=== PATIENT | male | born 1970 | race Caucasian/White ===

== ENCOUNTER 2019-01-04 15:16 | Inpatient (IN) | payer SELFPAY ==
[2019-01-04] VITALS (17 sets, daily range): BP systolic 98–123; BP diastolic 67–76; BMI 31.2
[~2019-01-04] VITALS: Ht 175.3 cm; Wt 92.5 kg
[2019-01-04 16:38] LABS: HEMATOCRIT 53.5 % (42.0-54.0); HEMOGLOBIN 15.8 g/dL (13.5-17.5); MCH 24.9 pg (26.0-34.0); MCHC 29.5 g/dL (31.0-37.0); MCV 84.4 fL (80.0-100.0); MEAN PLATELET VOLUME 10.2 fL (7.4-10.4); PLATELET COUNT 180 10x3/uL (130-400); RBC 6.34 10x6/uL (4.20-6.10); RDW 19.4 % (11.5-14.5); WBC 11.6 10x3/uL (4.8-10.8)
[2019-01-04 17:11] LABS: CREATINE KINASE 154 UL (21-232); PRO BNP 3835 pg/mL (0-125)
[2019-01-04 17:14] LABS: TROPONIN-I < 0.017 ng/mL (0.000-0.060)
[2019-01-04 17:58] LABS: EOSINOPHILS 1 % (0-7); LYMPHOCYTES 8 % (15-50); MONOCYTES 1 % (2-11); NEUTROPHILS 90 % (40-80); PLATELET ESTIMATE NORMAL
[2019-01-04 20:43] LABS: ALBUMIN 2.6 g/dL (3.4-5.0); ANION GAP 12.2 mmol/L (8-16); BILIRUBIN - TOTAL 0.53 mg/dL (0.2-1.3); CALCIUM 8.1 mg/dL (8.5-10.1); CARBON DIOXIDE 32.4 mmol/L (21.0-32.0); POTASSIUM - SERUM 5.6 mmol/L (3.5-5.1)
[2019-01-04 22:12] LABS: UDS - AMPHET NEGATIVE QUAL (NEGATIVE); UDS - BARB NEGATIVE QUAL (NEGATIVE); UDS - BENZO POSITIVE QUAL (NEGATIVE); UDS - COCAINE NEGATIVE QUAL (NEGATIVE); UDS - OPIATE NEGATIVE QUAL (NEGATIVE); UDS - PCP NEGATIVE QUAL (NEGATIVE); UDS - THC NEGATIVE QUAL (NEGATIVE)
[2019-01-04 23:03] LABS: CKMB 0.5 U/L (0.0-3.6); CREATINE KINASE 130 UL (21-232)
[2019-01-04 23:04] LABS: TROPONIN-I < 0.017 ng/mL (0.000-0.060)
[2019-01-05] VITALS (36 sets, daily range): BP systolic 94–149; BP diastolic 54–82; BMI 31.1
[2019-01-05 05:34] LABS: BASOPHILS 0.2 % (0-2); EOSINOPHILS 0 % (0-7); HEMATOCRIT 50.9 % (42.0-54.0); IMMATURE GRANULOCYTES 0.2 % (0-5); LYMPHOCYTES 11.6 % (15-50); MCH 24.6 pg (26.0-34.0); MCHC 29.5 g/dL (31.0-37.0); MCV 83.4 fL (80.0-100.0); MEAN PLATELET VOLUME 9.7 fL (7.4-10.4); MONOCYTES 11.9 % (2-11); NEUTROPHILS 76.1 % (40-80); PLATELET COUNT 149 10x3/uL (130-400); RDW 19.3 % (11.5-14.5)
[2019-01-05 06:09] LABS: ALBUMIN 2.5 g/dL (3.4-5.0); ALKALINE PHOSPHATASE 83 U/L (46-116); ALT (SGPT) 20 U/L (10-68); BILIRUBIN - TOTAL 0.53 mg/dL (0.2-1.3); CALC OSMOLALITY 290 mosm/kg (275-300); CALCIUM 8.4 mg/dL (8.5-10.1); CARBON DIOXIDE 33.5 mmol/L (21.0-32.0); CHLORIDE - SERUM 99 mmol/L (98-107); CKMB 0.8 U/L (0.0-3.6); CREATINE KINASE 90 UL (21-232); CREATININE - SERUM 1.5 mg/dL (0.6-1.3); GLUCOSE 116 mg/dL (74-106); MAGNESIUM - SERUM 1.7 mg/dL (1.8-2.4); POTASSIUM - SERUM 4.9 mmol/L (3.5-5.1); PROTEIN - SERUM 6.6 g/dL (6.4-8.2); SODIUM 139 mmol/L (136-145); TROPONIN-I < 0.017 ng/mL (0.000-0.060); UREA NITROGEN 47 mg/dL (7-18); eGFR NON AFRICAN AMERICAN 53 mL/min (90-120)
[2019-01-05 13:00] LABS: CKMB 0.4 U/L (0.0-3.6); CREATINE KINASE 83 UL (21-232); TROPONIN-I < 0.017 ng/mL (0.000-0.060)
--- NOTE | 2019-01-05 17:07 | MORECARE ---
CASE MANAGEMENT DISCHARGE SUMMARY PATIENT: DUKE REILLY UNIT: [id number] ADM DATE: 01/04/19 AGE: 48 : 68 SEX: M ROOM/BED: D.2313 AUTHOR: AMALIA AGUAYO PHYSICIAN: REFERRING PHYSICIAN: MARIBEL GALLARDO DO DATE OF SERVICE: 01/05/19 Discharge Plan Patient Name: DUKE REILLY [facility] [facility] 1970 Planned Disposition: Anticipated Discharge Date: Discharge Date: Expected LOS: Initial Reviewer: [email or web address] Initial Review Date: 01/04/2019 Generated: 01/05/19 6:07 pm Comments DCP- Discharge Planning Updated by [email or web address]: Vivienne Giordano on 01/05/19 4:[address] CM attempted to visit with patient he is currently sedated on ventilator. CM spoke with nurse Chichi she stated patients family is on the way from [place]. CM will continue follow and assist as needed with discharge planning / needs. Patient Name: DUKE REILLY Page [id number] at 1707 All edits/amendments must be made on the electronic document DICTATION DATE: 01/05/191705 SCHOOL AGE LEAD TEACHER: MARIMAR 01/05/191705 RPT#: [id number] DC DATE: STATUS: ADM IN [facility] [address] [place] [address] END OF REPORT
[2019-01-05] MEDS ORDERED: ASPIRIN81 MG PO (19:37)
[2019-01-05] MEDS ORDERED: LIPITOR80 MG PO (19:39)
[2019-01-05] MEDS ORDERED: BUPROPION HCL75 MG PO (19:47)
[2019-01-05] MEDS ORDERED: FUROSEMIDE20 MG PO (19:49)
[2019-01-05] MEDS ORDERED: HCTZ25 MG PO (19:49)
[2019-01-05] MEDS ORDERED: LISINOPRIL5 MG PO (19:51)
[2019-01-05] MEDS ORDERED: ANORO ELLIPTA1 EACH INH (19:52)
[2019-01-05] MEDS ORDERED: LOPRESSOR25 MG PO (19:52)
[2019-01-05] MEDS ORDERED: ALBUTEROL2.5 MG/3 M INH (19:59)
[2019-01-06] VITALS (24 sets, daily range): BP systolic 80–123; BP diastolic 54–71
[2019-01-06 04:36] LABS: BASOPHILS 0.3 % (0-2); EOSINOPHILS 0 % (0-7); HEMATOCRIT 52.5 % (42.0-54.0); HEMOGLOBIN 15.2 g/dL (13.5-17.5); IMMATURE GRANULOCYTES 0.1 % (0-5); LYMPHOCYTES 11.2 % (15-50); MCH 24.6 pg (26.0-34.0); MCV 84.8 fL (80.0-100.0); MONOCYTES 9.2 % (2-11); NEUTROPHILS 79.2 % (40-80); PLATELET COUNT 132 10x3/uL (130-400); RBC 6.19 10x6/uL (4.20-6.10); RDW 19.9 % (11.5-14.5); WBC 10.2 10x3/uL (4.8-10.8)
[2019-01-06 05:08] LABS: BILIRUBIN - TOTAL 0.63 mg/dL (0.2-1.3); CALCIUM 8.3 mg/dL (8.5-10.1); CARBON DIOXIDE 32.3 mmol/L (21.0-32.0); CREATININE - SERUM 1.7 mg/dL (0.6-1.3); POTASSIUM - SERUM 5.3 mmol/L (3.5-5.1); PROTEIN - SERUM 6.9 g/dL (6.4-8.2)
[2019-01-06 05:14] LABS: ALBUMIN 2.5 g/dL (3.4-5.0)
[2019-01-06 05:23] LABS: MAGNESIUM - SERUM 2.7 mg/dL (1.8-2.4)
--- NOTE | 2019-01-06 17:10 | EC ---
PATIENT:DUKE REILLY DATE OF SERVICE: 01/04/19 SEX: M MEDICAL RECORD: [id number] DATE OF : 68 LOCATION:[facility] AGE OF PATIENT: 48 ADMISSION DATE: 01/04/19 REFERRING PHYSICIAN: INTERPRETING PHYSICIAN: YAEL VALERIO MD ECHOCARDIOGRAM REPORT ECHO CHARGES 4 ECHO COMPLETE Date: 01/05/19 CLINICAL DIAGNOSIS: EVALUATE CHF ECHOCARDIOGRAPHIC MEASUREMENTS (adult normal given) AC root (d.<3.7cm) 3.3 cm LV Septum d (<1.2 cm> 1.0 cm Valve Excursion 1.2 cm LV Septum (systole) 1.4 cm Left Atria (s.<4.0cm> 2.8 cm LVPW d(<1.2cm) 1.0 cm RV (d.<2.3cm) 2.7 cm LVPW (sytole) 1.3 cm LV diastole(<5.6CM) 4.7 cm MV E-F(>70mm/sec) cm LV systole 3.4 cm LVOT Diameter 2.3 cm MV exc.(>10mm) cm Est.ejection fraction (50-75%) % DOPPLER: LVIT cm/sec A 107 cm/sec E 81 cm/sec LA cm/sec RVSP 18.2 mmHg LVOT 109 cm/sec AOP1/2T m/s Asc. Ao 147 cm/sec RVOT 64 cm/sec RA cm/sec PA 107 cm/sec AV Gradient Peak 8.7 mmHg AV Mean 5.0 mmHg AV Area 3.1 cm MV Gradient Peak 3.4 mmHg MV Mean 2.1 mmHg MV Area cm COMMENTS: Heliotherapist: Brian ANDERSON Creative Developer: 1 Dr. Valerio TAPE# PACS Pericardial Effusion N DATE OF SERVICE: 01/05/2019 FINDINGS: 1. Left ventricular chamber size is within normal limits. Left ventricular systolic function is normal. Overall ejection fraction estimated at 50%. 2. Left atrium, right atrium, and right ventricular chamber sizes are within normal limits. 3. Valvular structures have normal structure and motion. 4. Doppler interrogation reveals no significant valvular insufficiency or stenosis. ECHOCARDIOGRAM REPORT [id number] DUKE REILLY 5. No evidence of pericardial effusion or left ventricular thrombus. TRANSINT:[id number] Voice Confirmation ID: [id number] DOCUMENT ID: [id number] YAEL VALERIO MD at 1710 CC: [id number] DICTATION DATE: 01/05/19 1229 SEED PRODUCTION FIELD SUPERVISOR: 01/05/19 1326 ADM IN [place] [id number] [place] [id number]
[2019-01-07] VITALS (24 sets, daily range): BP systolic 101–166; BP diastolic 64–106
[2019-01-07 03:26] LABS: HEMATOCRIT 50.6 % (42.0-54.0); HEMOGLOBIN 14.9 g/dL (13.5-17.5); MCH 24.6 pg (26.0-34.0); MCHC 29.4 g/dL (31.0-37.0); MCV 83.5 fL (80.0-100.0); MEAN PLATELET VOLUME 9.8 fL (7.4-10.4); PLATELET COUNT 157 10x3/uL (130-400); RBC 6.06 10x6/uL (4.20-6.10); RDW 19.9 % (11.5-14.5); WBC 15.6 10x3/uL (4.8-10.8)
[2019-01-07 03:44] LABS: ALBUMIN 2.4 g/dL (3.4-5.0); ANION GAP 12.1 mmol/L (8-16); BILIRUBIN - TOTAL 0.68 mg/dL (0.2-1.3); CALCIUM 8.9 mg/dL (8.5-10.1); CARBON DIOXIDE 30.2 mmol/L (21.0-32.0); CREATININE - SERUM 1.5 mg/dL (0.6-1.3); MAGNESIUM - SERUM 3.2 mg/dL (1.8-2.4); POTASSIUM - SERUM 5.3 mmol/L (3.5-5.1); PROTEIN - SERUM 7.3 g/dL (6.4-8.2)
[2019-01-07 03:56] LABS: EOSINOPHILS 1 % (0-7); LYMPHOCYTES 5 % (15-50); MONOCYTES 4 % (2-11); NEUTROPHILS 87 % (40-80)
[2019-01-07 03:57] LABS: PLATELET ESTIMATE NORMAL
[2019-01-07 12:21] LABS: FUNGUS STAIN Final report (())
[2019-01-07 19:10] LABS: ACID FAST SMEAR Negative (()); AFB SPECIMEN PROCESSING Concentration (())
--- NOTE | 2019-01-07 19:35 | MORECARE ---
CASE MANAGEMENT DISCHARGE SUMMARY PATIENT: DUKE REILLY UNIT: [id number] ADM DATE: 01/04/19 AGE: 48 : 68 SEX: M ROOM/BED: D.2313 AUTHOR: AMALIA AGUAYO PHYSICIAN: REFERRING PHYSICIAN: MARIBEL GALLARDO DO DATE OF SERVICE: 01/07/19 Discharge Plan Patient Name: DUKE REILLY Facility: [facility]:[place] : 1970 Planned Disposition: Home Anticipated Discharge Date: Discharge Date: Expected LOS: Initial Reviewer: [email or web address] Initial Review Date: 01/07/2019 Generated: 01/07/19 8:35 pm Comments DCP- Discharge Planning Updated by [email or web address]: Vivienne Giordano on 01/05/19 4:[address] CM attempted to visit with patient he is currently sedated on ventilator. CM spoke with nurse Chichi she stated patients family is on the way from [place]. CM will continue follow and assist as needed with discharge planning / needs. DCPIA - Discharge Planning Initial Assessment Updated by [email or web address]: Vivienne Giordano on 01/07/19 7:33 pm * Is the patient Alert and Oriented? Yes * How many steps to enter\exit or inside your home? * PCP NO PCP * Pharmacy [place], [place] * Preadmission Environment Home with Family * ADLs Independent * Equipment None * List name and contact numbers for known caregivers / representatives who currently or will assist patient after discharge: SERENA HANEY - ?- [phone] * Verbal permission to speak to the caregivers and representatives has been obtained from the patient. Yes * Community resources currently utilized None * Additional services required to return to the preadmission environment? No * Can the patient safely return to the preadmission environment? Yes * Has this patient been hospitalized within the prior 30 days at any hospital? No Last DP export: 01/05/19 4:07 pm Patient Name: DUKE REILLY Page 21161 at 1935 All edits/amendments must be made on the electronic document DICTATION DATE: 01/07/191934 POWER PLANT ELECTRICIAN: MARIMAR 01/07/19 193 RPT#: [id number] DC DATE: STATUS: ADM IN [facility] [address] [place] [address] END OF REPORT
--- NOTE | 2019-01-07 19:42 | MORECARE ---
CASE MANAGEMENT DISCHARGE SUMMARY PATIENT: DUKE REILLY UNIT: [id number] ADM DATE: 01/04/19 AGE: 48 : 68 SEX: M ROOM/BED: D.2313 AUTHOR: DEDEDOC PHYSICIAN: REFERRING PHYSICIAN: MARIBEL GALLARDO DO DATE OF SERVICE: 01/07/19 Discharge Plan Patient Name: DUKE REILLY Facility: [facility]:[place] : 1970 Planned Disposition: Home Anticipated Discharge Date: Discharge Date: Expected LOS: Initial Reviewer: [email or web address] Initial Review Date: 01/07/2019 Generated: 01/07/19 8:41 pm Comments DCP- Discharge Planning Updated by [email or web address]: Vivienne Giordano on 01/07/19 6:[address] Patient Name: DUKE REILLY Admission Status: ER Accout number: [id number] Admission Date: 01-04-2019 : 1970 Admission Diagnosis:ACUTE RESPIRATORY FAILURE WITH HYPERCAPNIA Attending: MARIBEL GALLARDO Current LOS: 3 Anticipated DC Date: Planned Disposition: Home Primary Insurance: UNINSURED DISCOUNT PLAN Discharge Planning Comments: CM met with patient at bedside. Patient states he lives at home with his and plans to return to their home upon discharge. 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 Patient states he doesn't have insurance or a PCP. Patient denies any discharge needs at this time. CM will continue to follow and assist as needed with discharge planning / needs. Test Lead Application Testing: Vivienne Giordano DCP- Discharge Planning Updated by [id number]: Vivienne Giordano on 01/05/19 4:[address] CM attempted to visit with patient he is currently sedated on ventilator. CM spoke with nurse Chichi she stated patients family is on the way from [place]. CM will continue follow and assist as needed with discharge planning / needs. DCPIA - Discharge Planning Initial Assessment Updated by [email or web address]: Vivienne Giordano on 01/07/19 7:33 pm * Is the patient Alert and Oriented? Yes * How many steps to enter\exit or inside your home? * PCP NO PCP * Pharmacy [facility] [place] * Preadmission Environment Home with Family * ADLs Independent * Equipment None * List name and contact numbers for known caregivers / representatives who currently or will assist patient after discharge: SERENA HNAEY - ?- [phone] * Verbal permission to speak to the caregivers and representatives has been obtained from the patient. Yes * Community resources currently utilized None * Additional services required to return to the preadmission environment? No * Can the patient safely return to the preadmission environment? Yes * Has this patient been hospitalized within the prior 30 days at any hospital? No Last DP export: 01/07/19 6:35 pm Patient Name: DUKE REILLY Page 16132 at 1942 All edits/amendments must be made on the electronic document DICTATION DATE: 01/07/191940 INTERNATIONAL ACCOUNTING MANAGER: MARIMAR 01/07/191940 RPT#: [id number] DC DATE: STATUS: ADM IN [facility] [address] [place] [address] END OF REPORT
[2019-01-08] VITALS (22 sets, daily range): BP systolic 124–166; BP diastolic 81–107
[2019-01-08 02:48] LABS: BASOPHILS 0.5 % (0-2); EOSINOPHILS 0 % (0-7); HEMATOCRIT 55.2 % (42.0-54.0); HEMOGLOBIN 15.8 g/dL (13.5-17.5); IMMATURE GRANULOCYTES 0.2 % (0-5); LYMPHOCYTES 5.6 % (15-50); MCH 24.5 pg (26.0-34.0); MCHC 28.6 g/dL (31.0-37.0); MCV 85.4 fL (80.0-100.0); NEUTROPHILS 88.7 % (40-80); PLATELET COUNT 184 10x3/uL (130-400); RBC 6.46 10x6/uL (4.20-6.10); WBC 13.9 10x3/uL (4.8-10.8)
[2019-01-08 02:59] LABS: ALBUMIN 2.4 g/dL (3.4-5.0); ALKALINE PHOSPHATASE 84 U/L (46-116); BILIRUBIN - TOTAL 0.47 mg/dL (0.2-1.3); CALCIUM 9.3 mg/dL (8.5-10.1); CARBON DIOXIDE 31.9 mmol/L (21.0-32.0); CHLORIDE - SERUM 103 mmol/L (98-107); GLUCOSE 150 mg/dL (74-106); MAGNESIUM - SERUM 2.4 mg/dL (1.8-2.4); POTASSIUM - SERUM 5.9 mmol/L (3.5-5.1); PROTEIN - SERUM 7.9 g/dL (6.4-8.2); SODIUM 139 mmol/L (136-145)
[2019-01-08 03:02] LABS: CALC OSMOLALITY 292 mosm/kg (275-300); CREATININE - SERUM 0.8 mg/dL (0.6-1.3); UREA NITROGEN 46 mg/dL (7-18); eGFR NON AFRICAN AMERICAN > 90 mL/min (90-120)
[2019-01-08 03:03] LABS: ALT (SGPT) 32 U/L (10-68)
[2019-01-09] VITALS (23 sets, daily range): BP systolic 99–218; BP diastolic 54–167
[2019-01-09 03:26] LABS: BASOPHILS 0.2 % (0-2); EOSINOPHILS 0 % (0-7); HEMATOCRIT 56.5 % (42.0-54.0); HEMOGLOBIN 16.4 g/dL (13.5-17.5); IMMATURE GRANULOCYTES 0.2 % (0-5); LYMPHOCYTES 9.5 % (15-50); MCH 24.7 pg (26.0-34.0); MEAN PLATELET VOLUME 10.5 fL (7.4-10.4); MONOCYTES 7.6 % (2-11); NEUTROPHILS 82.5 % (40-80); PLATELET COUNT 180 10x3/uL (130-400)
[2019-01-09 03:27] LABS: WBC 9.4 10x3/uL (4.8-10.8)
[2019-01-09 03:28] LABS: RBC 6.65 10x6/uL (4.20-6.10)
[2019-01-09 03:38] LABS: ALBUMIN 2.5 g/dL (3.4-5.0); ALKALINE PHOSPHATASE 93 U/L (46-116); BILIRUBIN - TOTAL 0.55 mg/dL (0.2-1.3); CALC OSMOLALITY 293 mosm/kg (275-300); CALCIUM 9.8 mg/dL (8.5-10.1); CARBON DIOXIDE 36.6 mmol/L (21.0-32.0); CHLORIDE - SERUM 102 mmol/L (98-107); CREATININE - SERUM 0.8 mg/dL (0.6-1.3); GLUCOSE 143 mg/dL (74-106); MAGNESIUM - SERUM 2.1 mg/dL (1.8-2.4); SODIUM 142 mmol/L (136-145); UREA NITROGEN 39 mg/dL (7-18); eGFR NON AFRICAN AMERICAN > 90 mL/min (90-120)
[2019-01-09 03:41] LABS: ALT (SGPT) 152 U/L (10-68); POTASSIUM - SERUM 6.1 mmol/L (3.5-5.1)
[2019-01-10] VITALS (24 sets, daily range): BP systolic 100–137; BP diastolic 58–88
[2019-01-10 04:15] LABS: BASOPHILS 0.1 % (0-2); EOSINOPHILS 0 % (0-7); HEMATOCRIT 52.7 % (42.0-54.0); HEMOGLOBIN 15.1 g/dL (13.5-17.5); IMMATURE GRANULOCYTES 0.2 % (0-5); LYMPHOCYTES 7.9 % (15-50); MCH 24.2 pg (26.0-34.0); MCHC 28.7 g/dL (31.0-37.0); MCV 84.6 fL (80.0-100.0); MEAN PLATELET VOLUME 11.1 fL (7.4-10.4); NEUTROPHILS 83.8 % (40-80); PLATELET COUNT 173 10x3/uL (130-400); RBC 6.23 10x6/uL (4.20-6.10); RDW 19.6 % (11.5-14.5); WBC 8.5 10x3/uL (4.8-10.8)
[2019-01-10 04:20] LABS: ALBUMIN 2.3 g/dL (3.4-5.0); ALKALINE PHOSPHATASE 82 U/L (46-116); ALT (SGPT) 230 U/L (10-68); BILIRUBIN - TOTAL 0.45 mg/dL (0.2-1.3); CALC OSMOLALITY 286 mosm/kg (275-300); CALCIUM 8.7 mg/dL (8.5-10.1); CARBON DIOXIDE 36.5 mmol/L (21.0-32.0); CHLORIDE - SERUM 100 mmol/L (98-107); CREATININE - SERUM 0.8 mg/dL (0.6-1.3); GLUCOSE 140 mg/dL (74-106); POTASSIUM - SERUM 5.6 mmol/L (3.5-5.1); PROTEIN - SERUM 6.8 g/dL (6.4-8.2); SODIUM 140 mmol/L (136-145); UREA NITROGEN 28 mg/dL (7-18); eGFR NON AFRICAN AMERICAN > 90 mL/min (90-120)
[2019-01-11] VITALS (26 sets, daily range): BP systolic 97–137; BP diastolic 53–89
[2019-01-11 04:15] LABS: BASOPHILS 0.1 % (0-2); EOSINOPHILS 0 % (0-7); HEMATOCRIT 51.7 % (42.0-54.0); HEMOGLOBIN 15.1 g/dL (13.5-17.5); IMMATURE GRANULOCYTES 0.4 % (0-5); MCH 24.3 pg (26.0-34.0); MCHC 29.2 g/dL (31.0-37.0); MCV 83.3 fL (80.0-100.0); MEAN PLATELET VOLUME 10.1 fL (7.4-10.4); MONOCYTES 10.2 % (2-11); NEUTROPHILS 83.3 % (40-80); PLATELET COUNT 196 10x3/uL (130-400); RBC 6.21 10x6/uL (4.20-6.10); RDW 19.6 % (11.5-14.5); WBC 8.1 10x3/uL (4.8-10.8)
[2019-01-11 04:41] LABS: ALBUMIN 2.2 g/dL (3.4-5.0); ALKALINE PHOSPHATASE 69 U/L (46-116); ALT (SGPT) 246 U/L (10-68); BILIRUBIN - TOTAL 0.42 mg/dL (0.2-1.3); CALCIUM 8.4 mg/dL (8.5-10.1); CARBON DIOXIDE 36.5 mmol/L (21.0-32.0); CHLORIDE - SERUM 98 mmol/L (98-107); CREATININE - SERUM 0.8 mg/dL (0.6-1.3); GLUCOSE 153 mg/dL (74-106); POTASSIUM - SERUM 4.9 mmol/L (3.5-5.1); PROTEIN - SERUM 6.1 g/dL (6.4-8.2); SODIUM 137 mmol/L (136-145); eGFR NON AFRICAN AMERICAN > 90 mL/min (90-120)
[2019-01-11 04:48] LABS: CALC OSMOLALITY 278 mosm/kg (275-300); UREA NITROGEN 18 mg/dL (7-18)
[2019-01-11 13:17] LABS: HEPATITIS C ANTIBODY 0.1 S/CO RAT (0.0-0.9)
[2019-01-12] VITALS (26 sets, daily range): BP systolic 100–139; BP diastolic 49–97
[2019-01-12 04:27] LABS: BASOPHILS 0.1 % (0-2); EOSINOPHILS 0 % (0-7); HEMATOCRIT 50.6 % (42.0-54.0); HEMOGLOBIN 14.8 g/dL (13.5-17.5); IMMATURE GRANULOCYTES 0.7 % (0-5); LYMPHOCYTES 6.9 % (15-50); MCH 24.5 pg (26.0-34.0); MCHC 29.2 g/dL (31.0-37.0); MCV 83.8 fL (80.0-100.0); MEAN PLATELET VOLUME 10.1 fL (7.4-10.4); MONOCYTES 7.7 % (2-11); NEUTROPHILS 84.6 % (40-80); PLATELET COUNT 180 10x3/uL (130-400); RBC 6.04 10x6/uL (4.20-6.10); WBC 8.3 10x3/uL (4.8-10.8)
[2019-01-12 05:14] LABS: ALBUMIN 2.2 g/dL (3.4-5.0); ALKALINE PHOSPHATASE 68 U/L (46-116); ALT (SGPT) 199 U/L (10-68); CALC OSMOLALITY 281 mosm/kg (275-300); CALCIUM 8.3 mg/dL (8.5-10.1); CARBON DIOXIDE 38.7 mmol/L (21.0-32.0); CHLORIDE - SERUM 100 mmol/L (98-107); CREATININE - SERUM 0.8 mg/dL (0.6-1.3); GLUCOSE 149 mg/dL (74-106); POTASSIUM - SERUM 4.8 mmol/L (3.5-5.1); PROTEIN - SERUM 5.8 g/dL (6.4-8.2); SODIUM 139 mmol/L (136-145); UREA NITROGEN 16 mg/dL (7-18); eGFR NON AFRICAN AMERICAN > 90 mL/min (90-120)
[2019-01-13] VITALS (18 sets, daily range): BP systolic 97–158; BP diastolic 54–133
[2019-01-13 04:22] LABS: BASOPHILS 0 % (0-2); EOSINOPHILS 0 % (0-7); HEMATOCRIT 48.5 % (42.0-54.0); HEMOGLOBIN 14.5 g/dL (13.5-17.5); IMMATURE GRANULOCYTES 0.5 % (0-5); MCH 24.7 pg (26.0-34.0); MCHC 29.9 g/dL (31.0-37.0); MCV 82.8 fL (80.0-100.0); MEAN PLATELET VOLUME 9.7 fL (7.4-10.4); MONOCYTES 5.6 % (2-11); NEUTROPHILS 87.9 % (40-80); PLATELET COUNT 183 10x3/uL (130-400); RBC 5.86 10x6/uL (4.20-6.10); RDW 19.2 % (11.5-14.5); WBC 8.4 10x3/uL (4.8-10.8)
[2019-01-13 04:41] LABS: ALBUMIN 2.1 g/dL (3.4-5.0); ALKALINE PHOSPHATASE 61 U/L (46-116); ALT (SGPT) 180 U/L (10-68); BILIRUBIN - TOTAL 0.51 mg/dL (0.2-1.3); CALC OSMOLALITY 282 mosm/kg (275-300); CHLORIDE - SERUM 100 mmol/L (98-107); CREATININE - SERUM 0.7 mg/dL (0.6-1.3); GLUCOSE 153 mg/dL (74-106); MAGNESIUM - SERUM 1.4 mg/dL (1.8-2.4); PHOSPHOROUS 3.8 mg/dL (2.5-4.9); POTASSIUM - SERUM 4.8 mmol/L (3.5-5.1); PROTEIN - SERUM 5.4 g/dL (6.4-8.2); SODIUM 139 mmol/L (136-145); UREA NITROGEN 18 mg/dL (7-18); eGFR NON AFRICAN AMERICAN > 90 mL/min (90-120)
[2019-01-13 16:11] LABS: FUNGUS MYCOLOGY CULTURE Preliminary report (())
[2019-01-14 04:10] VITALS: BP 114/65
[2019-01-14 08:28] VITALS: BP 122/67
[2019-01-14 08:51] LABS: BASOPHILS 0.1 % (0-2); EOSINOPHILS 0 % (0-7); HEMATOCRIT 47.2 % (42.0-54.0); IMMATURE GRANULOCYTES 0.3 % (0-5); LYMPHOCYTES 6.9 % (15-50); MCH 24.5 pg (26.0-34.0); MCHC 29.7 g/dL (31.0-37.0); MCV 82.5 fL (80.0-100.0); MEAN PLATELET VOLUME 9.8 fL (7.4-10.4); MONOCYTES 5.3 % (2-11); NEUTROPHILS 87.4 % (40-80); PLATELET COUNT 187 10x3/uL (130-400); RBC 5.72 10x6/uL (4.20-6.10); RDW 19.5 % (11.5-14.5)
[2019-01-14 09:00] LABS: WBC 11.9 10x3/uL (4.8-10.8)
[2019-01-14 09:09] LABS: ALBUMIN 2.2 g/dL (3.4-5.0); ALKALINE PHOSPHATASE 62 U/L (46-116); ALT (SGPT) 151 U/L (10-68); BILIRUBIN - TOTAL 0.46 mg/dL (0.2-1.3); CALC OSMOLALITY 282 mosm/kg (275-300); CALCIUM 8.2 mg/dL (8.5-10.1); CARBON DIOXIDE 36.1 mmol/L (21.0-32.0); CHLORIDE - SERUM 103 mmol/L (98-107); CREATININE - SERUM 0.8 mg/dL (0.6-1.3); GLUCOSE 151 mg/dL (74-106); MAGNESIUM - SERUM 1.5 mg/dL (1.8-2.4); PHOSPHOROUS 3.3 mg/dL (2.5-4.9); POTASSIUM - SERUM 4.1 mmol/L (3.5-5.1); PROTEIN - SERUM 5.3 g/dL (6.4-8.2); SODIUM 140 mmol/L (136-145); UREA NITROGEN 14 mg/dL (7-18); eGFR NON AFRICAN AMERICAN > 90 mL/min (90-120)
[2019-01-14 11:59] VITALS: BP 124/70
[2019-01-14 16:24] VITALS: BP 124/68
[2019-01-14 20:00] VITALS: BP 122/62
[2019-01-15] VITALS (7 sets, daily range): BP systolic 102–134; BP diastolic 54–71
[2019-01-15 07:28] LABS: ALBUMIN 2.3 g/dL (3.4-5.0); ALKALINE PHOSPHATASE 64 U/L (46-116); ALT (SGPT) 163 U/L (10-68); BILIRUBIN - TOTAL 0.53 mg/dL (0.2-1.3); CALC OSMOLALITY 280 mosm/kg (275-300); CALCIUM 8.3 mg/dL (8.5-10.1); CARBON DIOXIDE 33.2 mmol/L (21.0-32.0); CHLORIDE - SERUM 102 mmol/L (98-107); CREATININE - SERUM 0.6 mg/dL (0.6-1.3); GLUCOSE 138 mg/dL (74-106); POTASSIUM - SERUM 4.6 mmol/L (3.5-5.1); PROTEIN - SERUM 5.5 g/dL (6.4-8.2); SODIUM 139 mmol/L (136-145); UREA NITROGEN 16 mg/dL (7-18); eGFR NON AFRICAN AMERICAN > 90 mL/min (90-120)
[2019-01-16 05:30] VITALS: BP 94/58
[2019-01-16 07:35] VITALS: BP 104/60
[2019-01-16 09:05] LABS: BASOPHILS 0 % (0-2); EOSINOPHILS 0 % (0-7); HEMATOCRIT 49.9 % (42.0-54.0); HEMOGLOBIN 15.2 g/dL (13.5-17.5); IMMATURE GRANULOCYTES 0.2 % (0-5); LYMPHOCYTES 11.6 % (15-50); MCH 24.9 pg (26.0-34.0); MCHC 30.5 g/dL (31.0-37.0); MCV 81.8 fL (80.0-100.0); MEAN PLATELET VOLUME 10.7 fL (7.4-10.4); NEUTROPHILS 82.2 % (40-80); RDW 19.5 % (11.5-14.5); WBC 8.8 10x3/uL (4.8-10.8)
[2019-01-16 09:06] LABS: PLATELET COUNT 226 10x3/uL (130-400)
[2019-01-16 09:13] LABS: ALBUMIN 2.5 g/dL (3.4-5.0); ALKALINE PHOSPHATASE 70 U/L (46-116); ALT (SGPT) 188 U/L (10-68); BILIRUBIN - TOTAL 0.72 mg/dL (0.2-1.3); CALC OSMOLALITY 282 mosm/kg (275-300); CALCIUM 8.4 mg/dL (8.5-10.1); CARBON DIOXIDE 33.3 mmol/L (21.0-32.0); CHLORIDE - SERUM 100 mmol/L (98-107); CREATININE - SERUM 0.7 mg/dL (0.6-1.3); GLUCOSE 159 mg/dL (74-106); PROTEIN - SERUM 5.7 g/dL (6.4-8.2); SODIUM 139 mmol/L (136-145); UREA NITROGEN 18 mg/dL (7-18); eGFR NON AFRICAN AMERICAN > 90 mL/min (90-120)
[2019-01-16 11:21] VITALS: BP 108/68
[2019-01-16 15:41] VITALS: BP 89/41
[2019-01-16 20:00] VITALS: BP 107/57
[2019-01-17] VITALS: BP 106/55
[2019-01-17 04:00] VITALS: BP 104/50
[2019-01-17 07:52] LABS: ALBUMIN 2.5 g/dL (3.4-5.0); ALKALINE PHOSPHATASE 72 U/L (46-116); ALT (SGPT) 232 U/L (10-68); CALC OSMOLALITY 278 mosm/kg (275-300); CALCIUM 8.4 mg/dL (8.5-10.1); CARBON DIOXIDE 31.6 mmol/L (21.0-32.0); CHLORIDE - SERUM 99 mmol/L (98-107); CREATININE - SERUM 0.7 mg/dL (0.6-1.3); GLUCOSE 153 mg/dL (74-106); POTASSIUM - SERUM 4.1 mmol/L (3.5-5.1); PROTEIN - SERUM 5.6 g/dL (6.4-8.2); SODIUM 137 mmol/L (136-145); UREA NITROGEN 19 mg/dL (7-18); eGFR NON AFRICAN AMERICAN > 90 mL/min (90-120)
[2019-01-17 09:03] VITALS: BP 114/66
[2019-01-17 18:23] VITALS: Ht 175.3 cm; Wt 92.5 kg
[2019-01-17 18:41] VITALS: BP 97/56
[2019-01-17 20:00] VITALS: BP 104/53
[2019-01-18] VITALS: BP 105/67
[2019-01-18 04:00] VITALS: BP 109/69
[2019-01-18 07:55] VITALS: BP 109/62
[2019-01-18 08:09] LABS: ALBUMIN 2.6 g/dL (3.4-5.0); ALKALINE PHOSPHATASE 65 U/L (46-116); ALT (SGPT) 249 U/L (10-68); BILIRUBIN - TOTAL 0.78 mg/dL (0.2-1.3); CALC OSMOLALITY 276 mosm/kg (275-300); CALCIUM 8.4 mg/dL (8.5-10.1); CHLORIDE - SERUM 99 mmol/L (98-107); CREATININE - SERUM 0.7 mg/dL (0.6-1.3); POTASSIUM - SERUM 3.5 mmol/L (3.5-5.1); PROTEIN - SERUM 5.6 g/dL (6.4-8.2); SODIUM 138 mmol/L (136-145); UREA NITROGEN 19 mg/dL (7-18); eGFR NON AFRICAN AMERICAN > 90 mL/min (90-120)
[2019-01-18 08:13] LABS: GLUCOSE 87 mg/dL (74-106)
[2019-01-18 08:57] LABS: BASOPHILS 0.2 % (0-2); EOSINOPHILS 0 % (0-7); HEMATOCRIT 49.6 % (42.0-54.0); HEMOGLOBIN 15.1 g/dL (13.5-17.5); IMMATURE GRANULOCYTES 0.1 % (0-5); LYMPHOCYTES 25.3 % (15-50); MCH 24.8 pg (26.0-34.0); MCHC 30.4 g/dL (31.0-37.0); MCV 81.4 fL (80.0-100.0); MEAN PLATELET VOLUME 10.3 fL (7.4-10.4); MONOCYTES 8.5 % (2-11); NEUTROPHILS 65.9 % (40-80); PLATELET COUNT 238 10x3/uL (130-400); RBC 6.09 10x6/uL (4.20-6.10); RDW 19.7 % (11.5-14.5); WBC 10.7 10x3/uL (4.8-10.8)
[2019-01-18 12:17] VITALS: BP 92/59
--- NOTE | 2019-01-18 13:46 | MORECARE ---
CASE MANAGEMENT DISCHARGE SUMMARY PATIENT: DUKE REILLY UNIT: [id number] ADM DATE: 01/04/19 AGE: 48 : 68 SEX: M ROOM/BED: D.1213 AUTHOR: DEDEDOC PHYSICIAN: REFERRING PHYSICIAN: MARIBEL GALLARDO DO DATE OF SERVICE: 01/18/19 Discharge Plan Patient Name: DUKE REILLY Facility: [facility]:[place] : 1970 Planned Disposition: Home Anticipated Discharge Date: Discharge Date: Expected LOS: Initial Reviewer: [email or web address] Initial Review Date: 01/07/2019 Generated: 01/18/19 2:46 pm Comments DCP- Discharge Planning Updated by [email or web address]: Vivienne Giordano on 01/07/19 6:[address] Patient Name: DUKE REILLY Admission Status: ER Accout number: [id number] Admission Date: 01-04-2019 : 1970 Admission Diagnosis:ACUTE RESPIRATORY FAILURE WITH HYPERCAPNIA Attending: MARIBEL GALLARDO Current LOS: 3 Anticipated DC Date: Planned Disposition: Home Primary Insurance: UNINSURED DISCOUNT PLAN Discharge Planning Comments: CM met with patient at bedside. Patient states he lives at home with his and plans to return to their home upon discharge. 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 Patient states he doesn't have insurance or a PCP. Patient denies any discharge needs at this time. CM will continue to follow and assist as needed with discharge planning / needs. Recording Studio Setup Worker: Vivienne Giordano DCP- Discharge Planning Updated by [email or web address]: Vivienne Giordano on 01/05/19 4:[address] CM attempted to visit with patient he is currently sedated on ventilator. CM spoke with nurse Chichi she stated patients family is on the way from [place]. CM will continue follow and assist as needed with discharge planning / needs. DCPIA - Discharge Planning Initial Assessment Updated by [email or web address]: Vivienne Giordano on 01/07/19 7:33 pm * Is the patient Alert and Oriented? Yes * How many steps to enter\exit or inside your home? * PCP NO PCP * Pharmacy [facility] [place] * Preadmission Environment Home with Family * ADLs Independent * Equipment None * List name and contact numbers for known caregivers / representatives who currently or will assist patient after discharge: SERENA HANEY - ?- [phone] * Verbal permission to speak to the caregivers and representatives has been obtained from the patient. Yes * Community resources currently utilized None * Additional services required to return to the preadmission environment? No * Can the patient safely return to the preadmission environment? Yes * Has this patient been hospitalized within the prior 30 days at any hospital? No External Providers External Provider[facility] Next Contact Date: Service Request Date: Service Type: Resolution: Reviewer: Comments: Last DP export: 01/07/19 6:41 pm Patient Name: DUKE REILLY Page 16643 at 1346 All edits/amendments must be made on the electronic document DICTATION DATE: 01/18/19 1346 LPC: MARIMAR 01/18/19 1346 RPT#: [id number] DC DATE: STATUS: ADM IN [facility] [address] [place] [address] END OF REPORT
[2019-01-18 16:02] VITALS: BP 103/64
[2019-01-18 20:00] VITALS: BP 111/78
[2019-01-19] VITALS (7 sets, daily range): BP systolic 84–99; BP diastolic 39–64
[2019-01-19 07:50] LABS: ALBUMIN 2.5 g/dL (3.4-5.0); ALKALINE PHOSPHATASE 66 U/L (46-116); ALT (SGPT) 227 U/L (10-68); BILIRUBIN - TOTAL 0.75 mg/dL (0.2-1.3); CALC OSMOLALITY 279 mosm/kg (275-300); CALCIUM 8.3 mg/dL (8.5-10.1); CARBON DIOXIDE 34.4 mmol/L (21.0-32.0); CHLORIDE - SERUM 100 mmol/L (98-107); CREATININE - SERUM 0.7 mg/dL (0.6-1.3); GLUCOSE 86 mg/dL (74-106); POTASSIUM - SERUM 3.3 mmol/L (3.5-5.1); PROTEIN - SERUM 5.5 g/dL (6.4-8.2); SODIUM 139 mmol/L (136-145); UREA NITROGEN 22 mg/dL (7-18); eGFR NON AFRICAN AMERICAN > 90 mL/min (90-120)
[2019-01-19 08:05] LABS: BASOPHILS 0 % (0-2); EOSINOPHILS 0.4 % (0-7); HEMATOCRIT 48.1 % (42.0-54.0); HEMOGLOBIN 14.7 g/dL (13.5-17.5); IMMATURE GRANULOCYTES 0.2 % (0-5); LYMPHOCYTES 30.1 % (15-50); MCH 24.6 pg (26.0-34.0); MCHC 30.6 g/dL (31.0-37.0); MCV 80.6 fL (80.0-100.0); MEAN PLATELET VOLUME 10.5 fL (7.4-10.4); MONOCYTES 9.1 % (2-11); NEUTROPHILS 60.2 % (40-80); PLATELET COUNT 245 10x3/uL (130-400); RBC 5.97 10x6/uL (4.20-6.10); RDW 19.8 % (11.5-14.5)
--- NOTE | 2019-01-19 11:16 | MORECARE ---
CASE MANAGEMENT DISCHARGE SUMMARY PATIENT: DUKE REILLY UNIT: [id number] ADM DATE: 01/04/19 AGE: 48 : 68 SEX: M ROOM/BED: D.1213 AUTHOR: DEDE,DOC PHYSICIAN: REFERRING PHYSICIAN: MARIBEL GALLARDO DO DATE OF SERVICE: 01/19/19 Discharge Plan Patient Name: DUKE REILLY Facility: [facility]:[place] : 1970 Planned Disposition: Home Anticipated Discharge Date: Discharge Date: Expected LOS: Initial Reviewer: [email or web address] Initial Review Date: 01/07/2019 Generated: 01/19/19 12:16 pm Comments DCP- Discharge Planning Updated by [id number]: Stacy Espinoza on 01/19/19 10:[address] Late entry for 01/18/19 14:10 CM called [employer] to obtain pricing on portable and home O2. Spoke with Marilin who informed CM that portable concentrator would cost $2,500. CM spoke with patient about cost and he stated he could not afford that. CM and patient discussed length of drive home to [place] (15hrs per patient) and CM called [employer] for pricing on enough portable O2 tanks to get patient home. Spoke with Marilin who informed CM that a 15hour drive at 4LPM would require ~ 6 large O2 cylinders at $10 each for a total of $60.00. However, DME does not have enough large cylinders to meet patient's need. Marilin is calling other DME's to try to obtain enough cylinders for patient transport home. Patient's home O2 concentrator will cost $50/month. CM informed patient of expected cost and DME working on getting enough O2 cylinders. Patient verbalized understanding and satisfaction with discharge plan, but states he will need to call a family member to come here from [place] and pick him up. States this could take a couple days, but he will call someone today to start making arrangements. DCP- Discharge Planning Updated by [id number]: Vivienne Giordano on 01/07/19 6:[address] Patient Name: DUKE ERILLY Admission Status: ER Accout number: [id number] Admission Date: 01-04-2019 : 1970 Admission Diagnosis:ACUTE RESPIRATORY FAILURE WITH HYPERCAPNIA Attending: MARIBEL GALLARDO Current LOS: 3 Anticipated DC Date: Planned Disposition: Home Primary Insurance: UNINSURED DISCOUNT PLAN Discharge Planning Comments: CM met with patient at bedside. Patient states he lives at home with his and plans to return to their home upon discharge. 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 Patient states he doesn't have insurance or a PCP. Patient denies any discharge needs at this time. CM will continue to follow and assist as needed with discharge planning / needs. Employment Educational Coord: Vivienne Giordano DCP- Discharge Planning Updated by [email or web address]: Vivienne Giordano on 01/05/19 4:[address] CM attempted to visit with patient he is currently sedated on ventilator. CM spoke with nurse Cadet she stated patients family is on the way from [place]. CM will continue follow and assist as needed with discharge planning / needs. DCPIA - Discharge Planning Initial Assessment Updated by [email or web address]: Vivienne Giordano on 01/07/19 7:33 pm * Is the patient Alert and Oriented? Yes * How many steps to enter\exit or inside your home? * PCP NO PCP * Pharmacy [facility] [place] * Preadmission Environment Home with Family * ADLs Independent * Equipment None * List name and contact numbers for known caregivers / representatives who currently or will assist patient after discharge: SERENA HANEY - ?- [phone] * Verbal permission to speak to the caregivers and representatives has been obtained from the patient. Yes * Community resources currently utilized None * Additional services required to return to the preadmission environment? No * Can the patient safely return to the preadmission environment? Yes * Has this patient been hospitalized within the prior 30 days at any hospital? No Last DP export: 01/18/19 12:46 p Patient Name: DUKE REILLY Page 86081 at 1116 All edits/amendments must be made on the electronic document DICTATION DATE: 01/19/19 1116 MEDICAL EDUCATION SPECIALIST: MARIMAR 01/19/19 1116 RPT#: [id number] DC DATE: STATUS: ADM IN [facility] [address] [place] [address] END OF REPORT
[2019-01-20] VITALS: BP 98/50
[2019-01-20 04:00] VITALS: BP 87/41
[2019-01-20 07:53] VITALS: BP 86/54
[2019-01-20 07:56] LABS: BASOPHILS 0 % (0-2); EOSINOPHILS 0.3 % (0-7); IMMATURE GRANULOCYTES 0.1 % (0-5); LYMPHOCYTES 34.8 % (15-50); MCH 24.6 pg (26.0-34.0); MCHC 30.6 g/dL (31.0-37.0); MCV 80.3 fL (80.0-100.0); MEAN PLATELET VOLUME 10.2 fL (7.4-10.4); MONOCYTES 8.4 % (2-11); NEUTROPHILS 56.4 % (40-80); PLATELET COUNT 236 10x3/uL (130-400); RDW 19.7 % (11.5-14.5); WBC 8.9 10x3/uL (4.8-10.8)
[2019-01-20 11:32] VITALS: BP 83/50
[2019-01-20] MEDS ORDERED: PREDNISONE10 MG PO (14:10)
[2019-01-20] MEDS ORDERED: FLORAJEN3 CAPS460 MG PO ×2 (14:10→15:34)
[2019-01-20] MEDS ORDERED: SINGULAIR10 MG PO ×2 (14:10→15:34)
[2019-01-20] MEDS ORDERED: CARDIZEM30 MG PO (14:10)
[2019-01-20] MEDS ORDERED: MUCINEX DM ER1 EAC1 PO ×2 (14:10→15:34)
--- NOTE | 2019-01-20 14:16 | MORECARE ---
CASE MANAGEMENT DISCHARGE SUMMARY PATIENT: DUKE REILLY UNIT: [id number] ADM DATE: 01/04/19 AGE: 48 : 68 SEX: M ROOM/BED: D.1213 AUTHOR: DEDE,DOC PHYSICIAN: REFERRING PHYSICIAN: MARIBEL GALLARDO DO DATE OF SERVICE: 01/20/19 Discharge Plan Patient Name: DUKE REILLY Facility: [facility]:[place] : 1970 Planned Disposition: Home Anticipated Discharge Date: Discharge Date: Expected LOS: Initial Reviewer: [email or web address] Initial Review Date: 01/07/2019 Generated: 01/20/19 3:16 pm Comments DCP- Discharge Planning Updated by [email or web address]: Stacy Espinoza on 01/20/19 1:[address] Late entry for 01/19/19 17:15 CM received call back from Marilin with [employer] stating she had not yet been able to locate the 6 large O2 cylinders that patient needs to discharge home. She will continue to call DME's to attempt to procure needed supplies. CM will continue to follow and assist with discharge planning needs. DCP- Discharge Planning Updated by [email or web address]: Stacy Espinoza on 01/19/19 10:[address] Late entry for 01/18/19 14:10 CM called [employer] to obtain pricing on portable and home O2. Spoke with Marilin who informed CM that portable concentrator would cost $2,500. CM spoke with patient about cost and he stated he could not afford that. CM and patient discussed length of drive home to [place] (15hrs per patient) and CM called [employer] for pricing on enough portable O2 tanks to get patient home. Spoke with Marilin who informed CM that a 15hour drive at 4L[place] would require ~ 6 large O2 cylinders at $10 each for a total of $60.00. However, DME does not have enough large cylinders to meet patient's need. Marilin is calling other DME's to try to obtain enough cylinders for patient transport home. Patient's home O2 concentrator will cost $50/month. CM informed patient of expected cost and DME working on getting enough O2 cylinders. Patient verbalized understanding and satisfaction with discharge plan, but states he will need to call a family member to come here from [place] and pick him up. States this could take a couple days, but he will call someone today to start making arrangements. DCP- Discharge Planning Updated by [email or web address]: Vivienne Giordano on 01/07/19 6:[address] Patient Name: DUKE REILLY Admission Status: ER Accout number: [id number] Admission Date: 01-04-2019 : 1970 Admission Diagnosis:ACUTE RESPIRATORY FAILURE WITH HYPERCAPNIA Attending: MARIBEL GALLARDO Current LOS: 3 Anticipated DC Date: Planned Disposition: Home Primary Insurance: UNINSURED DISCOUNT PLAN Discharge Planning Comments: CM met with patient at bedside. Patient states he lives at home with his and plans to return to their home upon discharge. 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 Patient states he doesn't have insurance or a PCP. Patient denies any discharge needs at this time. CM will continue to follow and assist as needed with discharge planning / needs. Mission Worker: Vivienne Giordano DCP- Discharge Planning Updated by [email or web address]: Vivienne Giordano on 01/05/19 4:[address] CM attempted to visit with patient he is currently sedated on ventilator. CM spoke with nurse Cadet she stated patients family is on the way from [place]. CM will continue follow and assist as needed with discharge planning / needs. DCPIA - Discharge Planning Initial Assessment Updated by [email or web address]: Vivienne Giordano on 01/07/19 7:33 pm * Is the patient Alert and Oriented? Yes * How many steps to enter\exit or inside your home? * PCP NO PCP * Pharmacy [place], [place] * Preadmission Environment Home with Family * ADLs Independent * Equipment None * List name and contact numbers for known caregivers / representatives who currently or will assist patient after discharge: SERENA HANEY - ?- [phone] * Verbal permission to speak to the caregivers and representatives has been obtained from the patient. Yes * Community resources currently utilized None * Additional services required to return to the preadmission environment? No * Can the patient safely return to the preadmission environment? Yes * Has this patient been hospitalized within the prior 30 days at any hospital? No Last DP export: 01/19/19 10:16 a Patient Name: DUKE REILLY Page 47773 at 1416 All edits/amendments must be made on the electronic document DICTATION DATE: 01/20/191415 WAREHOUSE STOCK CLERK: MARIMAR 01/20/191415 RPT#: [id number] DC DATE: STATUS: ADM IN [facility] [address] [place] [address] END OF REPORT
--- NOTE | 2019-01-20 14:27 | MORECARE ---
CASE MANAGEMENT DISCHARGE SUMMARY PATIENT: DUKE REILLY UNIT: [id number] ADM DATE: 01/04/19 AGE: 48 : 68 SEX: M ROOM/BED: D.1213 AUTHOR: DEDE,DOC PHYSICIAN: REFERRING PHYSICIAN: MARIBEL GALLARDO DO DATE OF SERVICE: 01/20/19 Discharge Plan Patient Name: DUKE REILLY Facility: [facility]:[place] : 1970 Planned Disposition: Home Anticipated Discharge Date: Discharge Date: Expected LOS: Initial Reviewer: [email or web address] Initial Review Date: 01/07/2019 Generated: 01/20/19 3:27 pm Comments DCP- Discharge Planning Updated by [email or web address]: Stacy Espinoza on 01/20/19 1:[address] CM received call back from [place] with [facility] stating she can not obtain the needed O2 cylinders for patient. CM called and spoke with Elisabet at [facility] about patient's oxygen needs. Elisabet stated they would be able to provide needed supplies. CM spoke with patient w/Elisabet on speaker phone. Elisabet explained to patient the estimated cost for home and portable O2 is $172.65/month. Patient is in agreement with charges. CM called Dr. Aburto and confirmed DC was okay with him. CM called Dr. Campos, spoke with Felicity about patient being ready for discharge once O2 is delivered today. Felicity verbalized understanding. CM called [facility] in respiratory therapy to obtain current walk test. CM faxed records as requested to [facility]. CM will continue to follow and assist as needed with discharge planning / needs. DCP- Discharge Planning Updated by [email or web address]: Stacy Espinoza on 01/20/19 1:[address] Late entry for 01/19/19 17:15 CM received call back from Marilin with [facility] stating she had not yet been able to locate the 6 large O2 cylinders that patient needs to discharge home. She will continue to call DME's to attempt to procure needed supplies. CM will continue to follow and assist with discharge planning needs. DCP- Discharge Planning Updated by [email or web address]: Stacy Espinoza on 01/19/19 10:[address] Late entry for 01/18/19 14:10 CM called [facility] to obtain pricing on portable and home O2. Spoke with Marilin who informed CM that portable concentrator would cost $2,500. CM spoke with patient about cost and he stated he could not afford that. CM and patient discussed length of drive home to [place] (15hrs per patient) and CM called [facility] for pricing on enough portable O2 tanks to get patient home. Spoke with Marilin who informed CM that a 15hour drive at 4LPM would require ~ 6 large O2 cylinders at $10 each for a total of $60.00. However, DME does not have enough large cylinders to meet patient's need. Marilin is calling other DME's to try to obtain enough cylinders for patient transport home. Patient's home O2 concentrator will cost $50/month. CM informed patient of expected cost and DME working on getting enough O2 cylinders. Patient verbalized understanding and satisfaction with discharge plan, but states he will need to call a family member to come here from [place] and pick him up. States this could take a couple days, but he will call someone today to start making arrangements. DCP- Discharge Planning Updated by [email or web address]: Vivienne Giordano on 01/07/19 6:[address] Patient Name: DUKE REILLY Admission Status: ER Accout number: [id number] Admission Date: 01-04-2019 : 1970 Admission Diagnosis:ACUTE RESPIRATORY FAILURE WITH HYPERCAPNIA Attending: MARIBEL GALLARDO Current LOS: 3 Anticipated DC Date: Planned Disposition: Home Primary Insurance: UNINSURED DISCOUNT PLAN Discharge Planning Comments: CM met with patient at bedside. Patient states he lives at home with his and plans to return to their home upon discharge. 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 Patient states he doesn't have insurance or a PCP. Patient denies any discharge needs at this time. CM will continue to follow and assist as needed with discharge planning / needs. Student Finance Advisor: Vivienne Giordano DCP- Discharge Planning Updated by [email or web address]: Vivienne Giordano on 01/05/19 4:[address] CM attempted to visit with patient he is currently sedated on ventilator. CM spoke with nurse Cadet she stated patients family is on the way from [place]. CM will continue follow and assist as needed with discharge planning / needs. DCPIA - Discharge Planning Initial Assessment Updated by [email or web address]: Vivienne Giordano on 01/07/19 7:33 pm * Is the patient Alert and Oriented? Yes * How many steps to enter\exit or inside your home? * PCP NO PCP * Pharmacy [place], [place] * Preadmission Environment Home with Family * ADLs Independent * Equipment None * List name and contact numbers for known caregivers / representatives who currently or will assist patient after discharge: SERENA HANEY - ?- [phone] * Verbal permission to speak to the caregivers and representatives has been obtained from the patient. Yes * Community resources currently utilized None * Additional services required to return to the preadmission environment? No * Can the patient safely return to the preadmission environment? Yes * Has this patient been hospitalized within the prior 30 days at any hospital? No Last DP export: 01/20/19 1:16 p Patient Name: DUKE REILLY Page [id number] at 1427 All edits/amendments must be made on the electronic document DICTATION DATE: 01/20/191425 SWITCHMAN: MARIMAR 01/20/191425 RPT#: [id number] DC DATE: STATUS: ADM IN [facility] [address] [place] [address] END OF REPORT
[2019-01-20] MEDS ORDERED: LEVAQUIN750 MG PO (14:28)
[2019-01-20 14:34] VITALS: BP 82/60
--- NOTE | 2019-01-20 14:39 | MORECARE ---
CASE MANAGEMENT DISCHARGE SUMMARY PATIENT: DUKE REILLY UNIT: [id number] ADM DATE: 01/04/19 AGE: 48 : 68 SEX: M ROOM/BED: D.1213 AUTHOR: DEDE,DOC PHYSICIAN: REFERRING PHYSICIAN: MARIBEL GALLARDO DO DATE OF SERVICE: 01/20/19 Discharge Plan Patient Name: DUKE REILLY Facility: [facility]:[place] : 1970 Planned Disposition: Home Anticipated Discharge Date: Discharge Date: Expected LOS: Initial Reviewer: [email or web address] Initial Review Date: 01/07/2019 Generated: 01/20/19 3:39 pm Comments DCP- Discharge Planning Updated by [id number]: Stacy Espinoza on 01/20/19 1:[address] CM received call back from [place] with [facility] stating she can not obtain the needed O2 cylinders for patient. CM called and spoke with Elisabet at [facility] about patient's oxygen needs. Elisabet stated they would be able to provide needed supplies. CM spoke with patient w/Elisabet on speaker phone. Elisabet explained to patient the estimated cost for home and portable O2 is $172.65/month. Patient is in agreement with charges. CM called Dr. Aburto and confirmed DC was okay with him. CM called Dr. Campos, spoke with Felicity about patient being ready for discharge once O2 is delivered today. Felicity verbalized understanding. CM called [facility] in respiratory therapy to obtain current walk test. CM faxed records as requested to [facility]. CM will continue to follow and assist as needed with discharge planning / needs. DCP- Discharge Planning Updated by [email or web address]: Stacy Espinoza on 01/20/19 1:[address] Late entry for 01/19/19 17:15 CM received call back from Marilin with [facility] stating she had not yet been able to locate the 6 large O2 cylinders that patient needs to discharge home. She will continue to call DME's to attempt to procure needed supplies. CM will continue to follow and assist with discharge planning needs. DCP- Discharge Planning Updated by [email or web address]: Stacy Espinoza on 01/19/19 10:[address] Late entry for 01/18/19 14:10 CM called [facility] to obtain pricing on portable and home O2. Spoke with Marilin who informed CM that portable concentrator would cost $2,500. CM spoke with patient about cost and he stated he could not afford that. CM and patient discussed length of drive home to [place] (15hrs per patient) and CM called [facility] for pricing on enough portable O2 tanks to get patient home. Spoke with Marilin who informed CM that a 15hour drive at 4LPM would require ~ 6 large O2 cylinders at $10 each for a total of $60.00. However, DME does not have enough large cylinders to meet patient's need. Marilin is calling other DME's to try to obtain enough cylinders for patient transport home. Patient's home O2 concentrator will cost $50/month. CM informed patient of expected cost and DME working on getting enough O2 cylinders. Patient verbalized understanding and satisfaction with discharge plan, but states he will need to call a family member to come here from [place] and pick him up. States this could take a couple days, but he will call someone today to start making arrangements. DCP- Discharge Planning Updated by [id number]: Vivienne Giordano on 01/07/19 6:[address] Patient Name: DUKE REILLY Admission Status: ER Accout number: [id number] Admission Date: 01-04-2019 : 1970 Admission Diagnosis:ACUTE RESPIRATORY FAILURE WITH HYPERCAPNIA Attending: MARIBEL GALLARDO Current LOS: 3 Anticipated DC Date: Planned Disposition: Home Primary Insurance: UNINSURED DISCOUNT PLAN Discharge Planning Comments: CM met with patient at bedside. Patient states he lives at home with his and plans to return to their home upon discharge. 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 Patient states he doesn't have insurance or a PCP. Patient denies any discharge needs at this time. CM will continue to follow and assist as needed with discharge planning / needs. Pet Adoption Counselor: Vivienne Giordano DCP- Discharge Planning Updated by [email or web address]: Vivienne Goirdano on 01/05/19 4:[address] CM attempted to visit with patient he is currently sedated on ventilator. CM spoke with nurse Cadet she stated patients family is on the way from [place]. CM will continue follow and assist as needed with discharge planning / needs. DCPIA - Discharge Planning Initial Assessment Updated by [email or web address]: Vivienne Giordano on 01/07/19 7:33 pm * Is the patient Alert and Oriented? Yes * How many steps to enter\exit or inside your home? * PCP NO PCP * Pharmacy [place], [place] * Preadmission Environment Home with Family * ADLs Independent * Equipment None * List name and contact numbers for known caregivers / representatives who currently or will assist patient after discharge: SERENA HANEY - ?- [phone] * Verbal permission to speak to the caregivers and representatives has been obtained from the patient. Yes * Community resources currently utilized None * Additional services required to return to the preadmission environment? No * Can the patient safely return to the preadmission environment? Yes * Has this patient been hospitalized within the prior 30 days at any hospital? No External Providers [facility] Provider[facility] Next Contact Date: Service Request Date: Service Type: Resolution: Reviewer: Comments: Last DP export: 01/20/19 1:27 p Patient Name: DUKE REILLY Page [id number] at 1439 All edits/amendments must be made on the electronic document DICTATION DATE: 01/20/191438 PLACING JUDGE: MARIMAR 01/20/191438 RPT#: [id number] DC DATE: STATUS: ADM IN [facility] [address] [place] [address] END OF REPORT
[2019-01-21 10:18] LABS: FUNGUS CULTURE RESULT 1 Candida dubliniensis (())
--- NOTE | 2019-01-21 14:13 | MORECARE ---
CASE MANAGEMENT DISCHARGE SUMMARY PATIENT: DUKE REILLY UNIT: [id number] ADM DATE: 01/04/19 AGE: 48 : 68 SEX: M ROOM/BED: D.1213 AUTHOR: DEDE,DOC PHYSICIAN: REFERRING PHYSICIAN: MARIBEL GALLARDO DO DATE OF SERVICE: 01/21/19 Discharge Plan Patient Name: DUKE REILLY Facility: [facility]:[place] : 1970 Planned Disposition: Home Anticipated Discharge Date: Discharge Date: 01/20/2019 Expected LOS: Initial Reviewer: [email or web address] Initial Review Date: 01/07/2019 Generated: 01/21/19 3:13 pm Comments DCP- Discharge Planning Updated by [email or web address]: Stacy Espinoza on 01/20/19 1:[address] CM received call back from [place] with [facility] stating she can not obtain the needed O2 cylinders for patient. CM called and spoke with Elisabet at [facility] about patient's oxygen needs. Elisabet stated they would be able to provide needed supplies. CM spoke with patient w/Elisabet on speaker phone. Elisabet explained to patient the estimated cost for home and portable O2 is $172.65/month. Patient is in agreement with charges. CM called Dr. Aburto and confirmed DC was okay with him. CM called Dr. Campos, spoke with Felicity about patient being ready for discharge once O2 is delivered today. Felicity verbalized understanding. CM called [facility] in respiratory therapy to obtain current walk test. CM faxed records as requested to [facility]. CM will continue to follow and assist as needed with discharge planning / needs. DCP- Discharge Planning Updated by [id number]: Stacy Epsinoza on 01/20/19 1:[address] Late entry for 01/19/19 17:15 CM received call back from [place] with [facility] stating she had not yet been able to locate the 6 large O2 cylinders that patient needs to discharge home. She will continue to call DME's to attempt to procure needed supplies. CM will continue to follow and assist with discharge planning needs. DCP- Discharge Planning Updated by [email or web address]: Stacy Espinoza on 01/19/19 10:[address] Late entry for 01/18/19 14:10 CM called [facility] to obtain pricing on portable and home O2. Spoke with Marilin who informed CM that portable concentrator would cost $2,500. CM spoke with patient about cost and he stated he could not afford that. CM and patient discussed length of drive home to [place] (15hrs per patient) and CM called [facility] for pricing on enough portable O2 tanks to get patient home. Spoke with Marilin who informed CM that a 15hour drive at 4LPM would require ~ 6 large O2 cylinders at $10 each for a total of $60.00. However, DME does not have enough large cylinders to meet patient's need. Marilin is calling other DME's to try to obtain enough cylinders for patient transport home. Patient's home O2 concentrator will cost $50/month. CM informed patient of expected cost and DME working on getting enough O2 cylinders. Patient verbalized understanding and satisfaction with discharge plan, but states he will need to call a family member to come here from [place] and pick him up. States this could take a couple days, but he will call someone today to start making arrangements. DCP- Discharge Planning Updated by [email or web address]: Vivienne Giordano on 01/07/19 6:[address] Patient Name: DUKE REILLY Admission Status: ER Accout number: [id number] Admission Date: 01-04-2019 : 1970 Admission Diagnosis:ACUTE RESPIRATORY FAILURE WITH HYPERCAPNIA Attending: MARIBEL GALLARDO Current LOS: 3 Anticipated DC Date: Planned Disposition: Home Primary Insurance: UNINSURED DISCOUNT PLAN Discharge Planning Comments: CM met with patient at bedside. Patient states he lives at home with his and plans to return to their home upon discharge. 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 Patient states he doesn't have insurance or a PCP. Patient denies any discharge needs at this time. CM will continue to follow and assist as needed with discharge planning / needs. Ways Operator: Vivienne Giordano DCP- Discharge Planning Updated by [email or web address]: Vivienne Giordano on 01/05/19 4:[address] CM attempted to visit with patient he is currently sedated on ventilator. CM spoke with nurse Cadet she stated patients family is on the way from [place]. CM will continue follow and assist as needed with discharge planning / needs. DCPIA - Discharge Planning Initial Assessment Updated by [email or web address]: Vivienne Giordano on 01/07/19 7:33 pm * Is the patient Alert and Oriented? Yes * How many steps to enter\exit or inside your home? * PCP NO PCP * Pharmacy [place], [place] * Preadmission Environment Home with Family * ADLs Independent * Equipment None * List name and contact numbers for known caregivers / representatives who currently or will assist patient after discharge: SERENA HANEY - ?- [phone] * Verbal permission to speak to the caregivers and representatives has been obtained from the patient. Yes * Community resources currently utilized None * Additional services required to return to the preadmission environment? No * Can the patient safely return to the preadmission environment? Yes * Has this patient been hospitalized within the prior 30 days at any hospital? No Last DP export: 01/20/19 1:39 p Patient Name: DUKE REILLY Page [id number] at 1413 All edits/amendments must be made on the electronic document DICTATION DATE: 01/21/191411 BROADCAST CHECKER: MARIMAR 01/21/191411 RPT#: [id number] DC DATE:01/20/19 STATUS: DIS IN [facility] [address] [place] [address] END OF REPORT
== END 2019-01-20 19:03 | disposition home or self-care (01) | DRG 166 ==
LOC: D.ER 15:16 → D.ICU 16:12 → D.M3 01-13 17:55
PROVIDERS: Emergency Medicine; Family Medicine; Internal Medicine Nephrology; Internal Medicine Pulmonary Disease; ADMIT Family Medicine
PROC: 5A1945Z Respiratory Ventilation, 24-96 Consecutive Hours (ICD-10-PCS; 2019-01-04)
PROC: 0B968ZZ Drainage of Right Lower Lobe Bronchus, Via Natural or Artificial Opening Endoscopic (ICD-10-PCS; principal; 2019-01-06)
PROC: 0B9J8ZZ Drainage of Left Lower Lung Lobe, Via Natural or Artificial Opening Endoscopic (ICD-10-PCS; 2019-01-06)
PROC: 0B988ZZ Drainage of Left Upper Lobe Bronchus, Via Natural or Artificial Opening Endoscopic (ICD-10-PCS; 2019-01-06)
DX: J96.02 Acute respiratory failure with hypercapnia (principal); G93.41 Metabolic encephalopathy; I50.31 Acute diastolic (congestive) heart failure; J18.9 Pneumonia, unspecified organism; J44.1 Chronic obstructive pulmonary disease with (acute) exacerbation; N17.9 Acute kidney failure, unspecified; E87.2 Acidosis; J44.0 Chronic obstructive pulmonary disease with (acute) lower respiratory infection; J98.11 Atelectasis; D72.829 Elevated white blood cell count, unspecified; J96.01 Acute respiratory failure with hypoxia; E78.5 Hyperlipidemia, unspecified; I25.10 Atherosclerotic heart disease of native coronary artery without angina pectoris; R53.81 Other malaise; I11.0 Hypertensive heart disease with heart failure